=== PATIENT | female | born 1950 | race Caucasian/White ===

== ENCOUNTER 2023-07-30 11:27 | Outpatient (CLI) | payer MEDICARE, BC ==
[2023-07-30 12:46] LABS: Anion Gap 14 mmol/L (10-20); BUN (Urea Nitrogen) 14 mg/dL (9.8-20.1); Calc. Creatinine Clearance 0 mL/min (70-130); Calcium 9.3 mg/dL (7.8-10.44); Carbon Dioxide 23 mmol/L (23-31); Chloride 107 mmol/L (98-107); Estimated GFR 86; Glucose 137 mg/dL (83-110); Potassium 4.4 mmol/L (3.5-5.1); Sodium 140 mmol/L (136-145)
== END 2023-07-30 11:28 | disposition home or self-care (01) ==
LOC: CSHLAB 11:27
PROVIDERS: ATTEND Podiatrist Foot & Ankle Surgery
DX: Z01.818 Encounter for other preprocedural examination (principal); M25.774 Osteophyte, right foot; M79.671 Pain in right foot; M12.571 Traumatic arthropathy, right ankle and foot
CPT/HCPCS: 80048; 93005; 93010

== ENCOUNTER 2023-08-01 10:19 | Day surgery (SDC) | payer MEDICARE, BC ==
[2023-07-30 12:08] VITALS: BMI 24.2
[2023-08-01] MEDS ORDERED: CEFAZOLIN 2 GM VIAL ONE (11:43)
[2023-08-01] MEDS ORDERED: Bupivacaine PF 0.5% 30 ML VIAL ONE (11:43)
[2023-08-01] MEDS ORDERED: Scopolamine 1 mg/72 hour Patch ONE (11:46)
[2023-08-01] MEDS ORDERED: Famotidine/PF 20 mg/2ml Vial ONE (11:50)
[2023-08-01] MEDS ORDERED: Dexamethasone 4 mg/ml Vial ONE (12:03)
[2023-08-01] MEDS ORDERED: Esmolol 100 MG/10 ML VIAL ONE (12:03)
[2023-08-01] MEDS ORDERED: PROPOFOL 20 ML ONE (12:03)
[2023-08-01] MEDS ORDERED: Lidocaine 1% PF 5 ML VIAL ONE (12:03)
[2023-08-01] MEDS ORDERED: Ondansetron PF 4 MG/2 ML Vial ONE (12:03)
[2023-08-01] MEDS ORDERED: Rocuronium Bromide 10 MG/ML (10ML VIAL) ONE (12:03)
[2023-08-01] MEDS ORDERED: SUCCINYLCHOLINE/SOD CL,ISO/PF 200 MG/10 ML SYRINGE FS ONE (12:04)
== END 2023-08-01 14:25 | disposition home or self-care (01) ==
LOC: CSHSDC 10:19
PROVIDERS: ATTEND Podiatrist Foot & Ankle Surgery
PROC: 0QBN0ZZ Excision of Right Metatarsal, Open Approach (ICD-10-PCS; principal; 2023-08-01)
DX: M89.8X7 Other specified disorders of bone, ankle and foot (principal); M12.571 Traumatic arthropathy, right ankle and foot; M25.774 Osteophyte, right foot; F41.9 Anxiety disorder, unspecified; F32.A Depression, unspecified; E11.9 Type 2 diabetes mellitus without complications; I10 Essential (primary) hypertension; E03.9 Hypothyroidism, unspecified; E78.5 Hyperlipidemia, unspecified; Z88.1 Allergy status to other antibiotic agents; Z88.2 Allergy status to sulfonamides; Z88.5 Allergy status to narcotic agent; Z88.8 Allergy status to other drugs, medicaments and biological substances; Z79.899 Other long term (current) drug therapy; Z79.84 Long term (current) use of oral hypoglycemic drugs; Z79.51 Long term (current) use of inhaled steroids
CPT/HCPCS: 36416; J0665; J1100; J2405; J2704; S0028